=== PATIENT | male | born 1940 | race Hispanic/Latino ===

== ENCOUNTER 2025-08-26 17:20 | Emergency (ER) | payer OTHER, MEDICARE ==
[~2025-08-26] VITALS: Ht 167.6 cm; Wt 73.6 kg
[~2025-08-26 17:20] MED LIST: CEPH500B PO
--- NOTE | 2025-08-26 18:36 | HMCIMG ---
EXAM: CT Head Without IV contrast. CLINICAL HISTORY: Patient presents after trauma. TECHNIQUE: Axial computed tomography images of the head/brain without intravenous contrast. COMPARISON: None provided. FINDINGS: BRAIN: Diffuse cerebral atrophy with prominent cortical sulci, basal cisterns, and bilateral sylvian fissures. Periventricular hypodensities concerning for chronic microangiopathic ischemic changes. No acute hemorrhage. No mass lesion. No CT evidence for acute territorial infarct. No midline shift or extra-axial collections. VENTRICLES: No hydrocephalus. ORBITS: The orbits are unremarkable. SINUSES AND MASTOIDS: Mucosal thickening in the right sphenoid sinus. The remaining paranasal sinuses and mastoid air cells are clear. BONES: No fracture. SOFT TISSUES: Unremarkable. IMPRESSION: No acute intracranial hemorrhage or mass effect. Diffuse cerebral atrophy. Chronic microangiopathic ischemic changes. Mucosal thickening in the right sphenoid sinus. /[place]
--- NOTE | 2025-08-26 18:43 | HMCIMG ---
EXAM: CT Cervical Spine Without IV contrast. CLINICAL HISTORY: trauma TECHNIQUE: Axial computed tomography images of the cervical spine without intravenous contrast. Sagittal and coronal reformatted images were generated. COMPARISON: None provided. FINDINGS: ALIGNMENT: Bony alignment is anatomic. DEGENERATIVE CHANGES: Mild to moderate degenerative changes which are more pronounced in the lower cervical spine. SOFT TISSUES: The prevertebral soft tissues are within normal limits. BONES: No acute fracture or aggressive appearing osseous lesion. IMPRESSION: No acute cervical spine abnormality. Mild to moderate degenerative changes which are more pronounced in the lower cervical spine. /[place]
--- NOTE | 2025-08-26 19:18 | NUR ---
PATIENT CARE ASSUMED AT THIS TIME. PATIENT TAKEN TO ER03.
--- NOTE | 2025-08-26 20:15 | ERN ---
ED Note History of Present Illness Stated Complaint: FALL Chief Complaint: Mechanical Fall Time Seen by MD: 17:23 Time Seen by Midlevel: 17:23 Dictation: The patient is an 84-year-old male with a history of diabetes, hypertension, CKD who presents to the emergency department with complaints of a fall onset 4:00 p.m.. Patient reports that he stepped down on the sidewalk and lost his spotting causing him to fall backwards. Patient complaints of headache. Denies any LOC . Denies any vomiting but reports some nausea. Patient also suffered an abrasion to his right elbow. Patient is on warfarin. Patient denies any neck pain, back pain, chest pain, abdominal pain or any other injuries from the fall. 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 08/04/25 Past Medical History Past Medical History: Diabetes-Type II, High Cholesterol, Hypertension, Renal Disese Surgical History: Cholecystectomy Surgical History Other: HEMICOLECTOMY, PROSTECTOMY, RN Note Reviewed/Agreed w/PFSH: Yes Review of System Dictation Constitutional: Negative for fever,chills, and weight loss Eyes: Negative for injury, pain,redness, and discharge ENT: Negative for injury,pain or swelling Cardiovascular: Negative for chest pain, palpitations, and edema Respiratory: Negative for shortness of breath, cough, and wheezing, Abdomen/GI: Negative for abdominal pain,vomiting, diarrhea, and constipation positive for nausea Back: Negative for injury and pain : Negative for injury, bleeding and discharge MS/Extremity: Negative for injury and deformity Skin: Negative for rash, and discoloration positive for right elbow abrasion Neuro: Negative for weakness, numbness, tingling, and seizure positive for headache Psych: Negative for suicide ideation, homicidal ideation, and hallucinations Initial Vital Sign VS Vital Signs Date Time Temp Pulse Resp B/P (MAP) Pulse Ox O2 Delivery O2 Flow Rate FiO2 08/26/25 17:22 98.4 69 18 117/62 98 Room Air 0 08/26/25 19:19 21 Physical Exam Dictation Vital Signs reviewed General Appearance: Alert, oriented x 3, no acute distress, well developed, nourished. Head and Face: non-traumatic. No hematomas or abrasions noted to scalp Eyes: PERRL, pink conjunctivas, eyelid no trauma, anterior chamber with arcus senilis. Ears: Pinnas intact and no signs of trauma or erythema ear canals clear and no discharge TM no erythema Nose: No discharge, no bleeding. Oropharynx: Mouth normal, tongue pink. pharynx clear,no erythema, tonsils no exudates, no abscesses noted, mucous membrane moist Neck: Supple, non-tender, no thyromegaly, no masses, no JVD, no bruits Breast:Deferred Chest:No tenderness, no crepitus, no paradoxical movement, no retractions Lungs:Clear, well-ventilated, symmetric, no rales, no wheezing, no rhonchi, no stridor, good breath sounds bilaterally Heart: Regular rate, regular rhythm, no murmur, no gallops Vascular: no peripheral edema, Abdomen: Soft, positive bowel sounds, nondistended, no guarding, nontender, no rebound, no masses no hepatomegaly, no splenomegaly, no Bassett's sign, no hernias. Rectal: Deferred Genital: Deferred Neurological: Normal speech, motor function intact, sensory function intact upper extremities equal and strength, lower extremities equal and strength, no facial droop Musculoskeletal: Neck nontender, full range of motion, back nontender, full range of motion, Extremities: nontender, full range of motion Skin: Color pink, dry, no turgor, no rash, no lacerations, no abrasions, no contusions. Small skin tear to right elbow 2 cm in diameter, minimal bleeding Lymphatic: Deferred Results (Laboratory/Radiology) Laboratory/Radiology REASON: trauma ORDERING PHYSICIAN: NATO SINGER PROCEDURE: C SPIN WO - CT CERVICAL SPINE W/O CONTRAST EXAM: CT Cervical Spine Without IV contrast. CLINICAL HISTORY: trauma TECHNIQUE: Axial computed tomography images of the cervical spine without intravenous contrast. Sagittal and coronal reformatted images were generated. COMPARISON: None provided. FINDINGS: ALIGNMENT: Bony alignment is anatomic. DEGENERATIVE CHANGES: Mild to moderate degenerative changes which are more pronounced in the lower cervical spine. SOFT TISSUES: The prevertebral soft tissues are within normal limits. BONES: No acute fracture or aggressive appearing osseous lesion. IMPRESSION: No acute cervical spine abnormality. Mild to moderate degenerative changes which are more pronounced in the lower cervical spine. /[place] REASON: trauma ORDERING PHYSICIAN: NATO SINGER PROCEDURE: HEAD WO - CT HEAD/BRAIN W/O CONTRAST ADDENDUM REPORT ADDENDUM: Results were shared by telephone at 7:39 Pm EST on 08-26-25 and acknowledged by CIRCLE EDGER KRIS Clay. /[place] EXAM: CT Head Without IV contrast. CLINICAL HISTORY: Patient presents after trauma. TECHNIQUE: Axial computed tomography images of the head/brain without intravenous contrast. COMPARISON: None provided. FINDINGS: BRAIN: Diffuse cerebral atrophy with prominent cortical sulci, basal cisterns, and bilateral sylvian fissures. Periventricular hypodensities concerning for chronic microangiopathic ischemic changes. No acute hemorrhage. No mass lesion. No CT evidence for acute territorial infarct. No midline shift or extra-axial collections. VENTRICLES: No hydrocephalus. ORBITS: The orbits are unremarkable. SINUSES AND MASTOIDS: Mucosal thickening in the right sphenoid sinus. The remaining paranasal sinuses and mastoid air cells are clear. BONES: No fracture. SOFT TISSUES: Unremarkable. IMPRESSION: No acute intracranial hemorrhage or mass effect. Diffuse cerebral atrophy. Chronic microangiopathic ischemic changes. Mucosal thickening in the right sphenoid sinus. /[place] Labs Reviewed?: Yes ED Course ED Course Orders Procedure Category Date Status Time Ct Head/Brain W/O CT 08/26/25 Resulted Contrast 17:44 Ct Cervical Spine W/O CT 08/26/25 Resulted Contrast 17:44 Elbow Comp 3+Vws Rt RAD 08/26/25 Taken 17:44 Acetaminophen 500mg PHA 08/26/25 Complete Tab (Tylenol 500mg T 18:00 Wound Care (Er) CPOE 08/26/25 Transmitted 17:44 Current Medications Medications (Trade) Dose Ordered Sig/Nguyen Route PRN Reason Start Time Stop Time Status Last Admin Dose Admin Acetaminophen (TYLenol 500MG TAB) 1,000 mg ONCE ONCE PO 08/26/25 18:00 08/26/25 18:01 DC 08/26/25 19:16 Vital Signs Date Time Temp Pulse Resp B/P (MAP) Pulse Ox O2 Delivery O2 Flow Rate FiO2 08/26/25 19:19 98.8 61 14 135/75 96 Room Air* 0 21 08/26/25 17:22 98.4 69 18 117/62 98 Room Air 0 Medical Decision Making MDM The patient is an 84-year-old male with a history of diabetes, hypertension, CKD who presents to the emergency department with complaints of a fall onset 4:00 p.m. Patient reports that he stepped down on the sidewalk and lost his spotting causing him to fall backwards. Patient complaints of headache. Denies any LOC . Denies any vomiting but reports some nausea. Patient also suffered an abrasion to his right elbow. Patient is on warfarin. Patient denies any neck pain, back pain, chest pain, abdominal pain or any other injuries from the fall. CT head showed no acute hemorrhage. CT cervical spine showed no fractures x-ray showed no obvious fractures . Wound was cleaned. Patient continues neurologically intact, stable vital signs. Patient at this time reports he feels better in no longer has any symptoms. We will discharge patient to follow up with PCP. Differential diagnosis: Concussion, elbow fracture, intracerebral hemorrhage, C-spine fracture Need for hospitalization: Patient does not meet criteria for hospitalization. There are no social concerns with this patient. DX & DISP Disposition: Discharge Departure Impression: Primary Impression: Concussion Additional Impressions: Head contusion, Skin tear of right elbow without complication Condition: Stable Additional Instructions: Please follow up with your primary doctor in 1-2 days. If you develop severe vomiting, severe dizziness or changes in mental status please return to ER. Keep your wound clean and dry. Do not put your wound under water, such as in a bath, pool, or patel. This can slow healing and raise your chance of getting an infection. You should call your doctor if you develop any fever, redness or swelling around the cut, or pus draining from the cut. Concussion usually happens after head injury but can be caused by a violent shaking. Other causes include car accidents, falling down, injuries while playing sports. Treatment for concussions include preventing further injury while you are healing. Avoid any activities that can lead to another head injury like sports. Rest your body and get plenty of sleep. Avoid heavy exercise or too much physical activity if it makes you feel worse. Avoid activities that need concentration or lot of attention if it makes you feel worse. Avoid use of video games, prolonged screen time. Avoid any alcohol or drugs. You can treat your headaches with Tylenol. FOLLOW-UP WITH PRIMARY CARE PROVIDER IN 1 TO 2 DAYS. TAKE MEDICATIONS DIRECTED HERE IN THE EMERGENCY ROOM. OKAY TO CONTINUE HOME MEDICATIONS UNLESS OTHERWISE DISCUSSED DURING YOUR VISIT IN THE EMERGENCY ROOM TODAY. RETURN TO YOUR NEAREST EMERGENCY ROOM IF SYMPTOMS WORSEN OR IF THERE IS NO IMPROVEMENT. CALL 911 IF YOU NEED IMMEDIATE ASSISTANCE. TAKE TYLENOL [id number] NEEDED AND IF NO CONTRAINDICATIONS ARE PRESENT. INCREASE ORAL HYDRATION. A WOUND CULTURE OR URINE CULTURE WAS ORDERED HERE IN THE EMERGENCY ROOM DEPARTMENT PLEASE FOLLOW-UP WITH PRIMARY CARE PROVIDER AND ADVISE THEM TO GET REPEAT PORTS FROM OUR FACILITY. IF YOU HAD ANY GENOVEVA WRAP/SPLINTS THAT WERE APPLIED HERE, PLEASE DO NOT REMOVE THEM UNTIL YOU SEE YOUR PRIMARY CARE OR SPECIALTY. Referrals: SELF,REFERRAL (PCP) Time of Disposition: 20:31 I have reviewed the case, and I agree with, Diagnosis and Plan NATO SINGER Aug 26, 2025 20:15
--- NOTE | 2025-08-26 20:31 | NUR ---
PER ER SET UP INSPECTOR, WOUND ON RIGHT ELBOW CLEANED WITH WOUND CLEANSING SPRAY AND BANDAGED.
[2025-08-26 20:32] VITALS: BP 132/72; PULSE 64; RESP 14; TEMP 98.8; O2SAT 99
--- NOTE | 2025-08-26 21:23 | HMCIMG ---
EXAM: CR Right Elbow, 4 Views. CLINICAL HISTORY: Fall. COMPARISON: None provided. FINDINGS: BONES: Subtle extra-articular fracture involving the radial head cannot be excluded in the current scan JOINTS: The joint spaces appear within normal limits. No dislocation. No radiographic evidence of a joint effusion. SOFT TISSUES: The soft tissues are unremarkable. IMPRESSION: Subtle extra-articular fracture involving the radial head cannot be excluded in the current scan. Suggested CT Correlation. /[place]
== END 2025-08-26 20:38 | disposition home or self-care (01) ==
LOC: EDH 17:20
DX: S51.011A Laceration without foreign body of right elbow, initial encounter (principal); S06.0X0A Concussion without loss of consciousness, initial encounter; E11.9 Type 2 diabetes mellitus without complications; E78.00 Pure hypercholesterolemia, unspecified; I10 Essential (primary) hypertension; Z88.1 Allergy status to other antibiotic agents; Z88.8 Allergy status to other drugs, medicaments and biological substances; Z90.49 Acquired absence of other specified parts of digestive tract; W18.39XA Other fall on same level, initial encounter; Y93.89 Activity, other specified; Y92.89 Other specified places as the place of occurrence of the external cause; Y99.8 Other external cause status
CPT/HCPCS: 70450; 72125; 73080; 99284